=== PATIENT | male | born 1995 | race Caucasian/White ===

== ENCOUNTER 2021-01-18 19:02 | Emergency (ER) | payer OTHER ==
[~2021-01-18] VITALS: Ht 190.5 cm; Wt 90.7 kg
[2021-01-18] MEDS ORDERED: METHADONE HCL40 MG PO (19:38)
[2021-01-18] MEDS ORDERED: BACTRIM DS TAB1 EACH PO (20:59)
[2021-01-18] MEDS ORDERED: CEPHALEXIN500 MG PO (20:59)
== END 2021-01-18 21:34 | disposition home or self-care (01) ==
LOC: ED 19:02
DX: L03.116 Cellulitis of left lower limb (principal); F17.200 Nicotine dependence, unspecified, uncomplicated
CPT/HCPCS: 73630; 80053; 83605; 85025; 99283-25